=== PATIENT | female | born 1965 | race Caucasian/White ===

== ENCOUNTER 2016-10-11 14:07 | Emergency (ER) | payer BC ==
[~2016-10-11] VITALS: Ht 162.6 cm; Wt 54.3 kg
[~2016-10-11 14:07] MED LIST: AMPH10TA2 PO; ATV/1 PO; CALC500C70 PO; LEVO125T72 PO; TERB250T51 PO; WARF-237 PO; WARF7.5T PO
[2016-10-11 14:12] VITALS: TEMP 36.8; Ht 162.6 cm; Wt 54.3 kg
[2016-10-11] MEDS ORDERED: XYLOCAINE 1%/SOD BICARB 20 ML VIAL INFIL ONE (14:53)
[2016-10-11 15:22] VITALS: BP 155/93; PULSE 82; O2SAT 100
--- NOTE | 2016-10-11 16:37 | EMERGENCY ROOM VISIT NOTE ---
ED Visit Note First contact with patient: 14:32 Chief complaint: laceration HPI: This 51-year-old white female presents for evaluation of a laceration in her scalp that occurred around 1:00. The patient was in a [employer] bathroom and was leaning over to check on the stall. She stood up and struck her head on the hand dryer. She sustained a laceration. Bleeding was controlled with pressure. They deny any nausea, vomiting, or loss of consciousness. She did drive here. No other complaints. Tetanus is believed to be up-to-date. Pain is 2/10. She does take Coumadin. Supplemental sheet was reviewed and signed. Previous surgeries: None Medical history: Significant for factor V Leiden, DVT 2, anxiety, hypothyroidism, hypertension, Hodgkin's disease Current Medications: Coumadin, Synthroid, Ativan Allergies: Prochlorperazine Tetanus: Within 10 years Family History: Significant for breast cancer and colon cancer. Parents are . Social History: Patient is . Employed. No tobacco use. Occasional EtOH use. REVIEW OF SYSTEM: HEENT: No dizziness, visual problems, hearing loss, or tinnitus. There is no difficulty swallowing and no oral lesions are present. PULMONARY: No cough, shortness of breath, sputum production or hemoptysis. CARDIOVASCULAR: No chest pain, palpitations, shortness of breath or peripheral edema. GASTROINTESTINAL: No diarrhea, constipation, nausea, vomiting, or abdominal pain. GENITOURINARY: No dysuria, frequency, urgency or nocturia. NEUROLOGIC: No weakness, muscle tenderness, epilepsy or history of neurological problems. MUSCULOSKELETAL: No history of joint tenderness/swelling. No history of arthritis or arthralgias. SKIN: No rashes or lesions. ENDOCRINE: No history of diabetes, thyroid disorders, or abnormal hair growth. Physical Exam: Vitals: Afebrile. Temp 36.8 pulse 88 BP 152/100 respirations 18 General: Well-developed, well-nourished, middle-aged white female, in no acute distress. No obvious discomfort. She is sitting on the bed. Alert and oriented. Skin: Warm and dry with good turgor. No rashes. No ecchymosis or erythema. The patient is not diaphoretic. No abrasions. The patient has a 2.5 centimeter laceration present on the left side of the crown in her scalp. It is linear. No foreign material is noted. Bleeding is controlled. Musculoskeletal: Gross motor function of the upper and lower extremities is intact and unremarkable. Neurologic: Gross sensation is intact across the head by soft touch. Impression: 2.5 cm scalp laceration Procedure: Informed oral consent was obtained for repair. Scalp was prepped with Betadine and draped with a sterile towel. Area was anesthetized using 4 mls 1% percent plain buffered lidocaine in a direct infiltration. Thorough inspection was performed. No foreign material was noted. Wound was irrigated using normal sterile saline under jet spray lavage. Wound was closed using 6 surgical joaquin. Excellent wound edge approximation was achieved. Hemostasis was achieved. Plan: Patient was educated regarding today's findings. Conservative care measures were discussed. Cleanse the wound daily with soap and water and reapply a small amount of bacitracin. She may wash her hair. Ice and elevate intermittently as needed for discomfort. Tylenol every 6 hours as needed for pain. Wound care handout was provided. [place] out in 10-14 days. Avoid soaking or swimming for two weeks. Return to the ER for any acute changes or signs of infection. Problem List Medical Problems: (1) Factor V Status: Chronic (2) History of DVT of lower extremity Status: Resolved (3) HTN (hypertension) Status: Chronic Current/Historical Medications Scheduled Calcium/Vitamin D (Os-[place]ir[place] 500 Plus D), 1 TAB PO DAILY Levothyroxine Sodium (Synthroid), 125 MCG PO DAILY Warfarin Sod (Coumadin), 1 TAB PO 2XWK Warfarin Sodium (Coumadin), 7.5 MG PO 5XWK Scheduled PRN Lorazepam (Ativan), 1-2 MG PO Q4H PRN for Anxiety/Agitation Allergies Coded Allergies: Prochlorperazine (Unverified Allergy, Unknown, "MUSCLE REACTION", 10/11/16) Vital Signs Date Time Temp Pulse Resp B/P Pulse Ox O2 Delivery O2 Flow Rate FiO2 10/11/16 15:22 82 155/93 100 Room Air 10/11/16 14:12 36.8 88 18 152/100 99 Room Air Departure Information Impression Primary Impression: Scalp laceration Dispostion Home / Self-Care Forms HOME CARE DOCUMENTATION FORM, Clean wound with;: soap and water Number of times/day to clean wound: 2 Coat wound with: antibiotic ointment Suture removal in how many days: 10-14 TYLENOL USE, IMPORTANT VISIT INFORMATION Patient Instructions My [facility] Additional Instructions Tylenol every 6 hours as needed for discomfort Cleanse the wound daily with soap and water Avoid swimming or soaking for 2 weeks you may shower and wash your hair Joaquin out in 10-14 days Return to the ED for any acute changes or signs of infection
== END 2016-10-11 15:20 | disposition home or self-care (01) ==
LOC: C.EDB 14:09 → C.EDD 15:20
DX: S01.01XA Laceration without foreign body of scalp, initial encounter (principal); W22.8XXA Striking against or struck by other objects, initial encounter; D68.2 Hereditary deficiency of other clotting factors; I10 Essential (primary) hypertension; Z79.01 Long term (current) use of anticoagulants

== ENCOUNTER 2016-10-24 13:09 | Emergency (ER) | payer BC ==
[~2016-10-24] VITALS: Ht 162.6 cm; Wt 55.2 kg
[~2016-10-24 13:09] MED LIST changes: -AMPH10TA2 PO; -TERB250T51 PO
[2016-10-24 13:10] VITALS: BP 139/83; PULSE 78; TEMP 36.7; O2SAT 100; Ht 162.6 cm; Wt 55.2 kg
--- NOTE | 2016-10-24 13:23 | EMERGENCY ROOM VISIT NOTE ---
ED Visit Note First contact with patient: 13:14 CHIEF COMPLAINT: Staple removal HISTORY OF PRESENT ILLNESS: This 51-year-old female patient returns to the ED today for removal of joaquin that were placed 13 days ago. There has been no swelling, redness, or drainage from the wound. The patient feels like the laceration is healing well. REVIEW OF SYSTEMS: A 6 system review of systems was completed with positives and pertinent negatives listed in the HPI. PMH: Unchanged from previous visit. ALLERGIES: prochlorperazine PHYSICAL EXAM: Vital Signs: Reviewed Nurse's notes, vital signs stable. GENERAL : This 51-year-old female, in no acute distress. SKIN: There is a stapled wound on the scalp with no signs of infection. There is no erythema, swelling, or tenderness. EMERGENCY DEPARTMENT COURSE: 6 [place] were removed without any difficulty and there was no separation of the wound edges. The patient was discharged home in good condition. DIAGNOSIS: Healing laceration and staple removal DISCHARGE INSTRUCTIONS AND TREATMENT: Wash any remaining crusts off of the wound today and resume your normal activities. Problem List Medical Problems: (1) Factor V Status: Chronic (2) History of DVT of lower extremity Status: Resolved (3) HTN (hypertension) Status: Chronic Current/Historical Medications Scheduled Levothyroxine Sodium (Synthroid), 125 MCG PO DAILY Warfarin Sod (Coumadin), 1 TAB PO 2XWK Warfarin Sodium (Coumadin), 7.5 MG PO 5XWK Scheduled PRN Lorazepam (Ativan), 1-2 MG PO Q4H PRN for Anxiety/Agitation Allergies Coded Allergies: Prochlorperazine (Unverified Allergy, Unknown, "MUSCLE REACTION", 10/24/16) Vital Signs Date Time Temp Pulse Resp B/P Pulse Ox O2 Delivery O2 Flow Rate FiO2 10/24/16 13:10 36.7 78 17 139/83 100 Room Air Departure Information Impression Primary Impression: Encounter for removal of joaquin Dispostion Home / Self-Care Condition GOOD Referrals Tessie Klein DO (PCP) Patient Instructions My [facility] Additional Instructions Wash any remaining crusts off of the wound today and resume your normal activities.
== END 2016-10-24 13:28 | disposition home or self-care (01) ==
LOC: C.EDB 13:10 → C.EDD 13:28
DX: S01.01XA Laceration without foreign body of scalp, initial encounter (principal); W22.8XXA Striking against or struck by other objects, initial encounter